=== PATIENT | male | born 1945 ===

== ENCOUNTER 2018-10-13 12:04 | Outpatient (REF) | payer OTHER, SELFPAY ==
[2018-10-13 22:47] LABS: BUN 21 mg/dL (7-18); CREATININE 0.76 mg/dL (0.70-1.30); Calcium 8.6 mg/dL (8.5-10.1); Chloride 105 mmol/L (98-107); Glucose 76 mg/dL (70-100); Potassium 4.1 mmol/L (3.5-5.1); Sodium 141 mmol/L (136-145)
== END 2018-10-13 12:24 ==
LOC: NCHCN 12:04
PROVIDERS: PCP Nurse Practitioner Family; Visit Provider Registered Nurse
DX: Z86.79 Personal history of other diseases of the circulatory system (principal)
CPT/HCPCS: 80048

== ENCOUNTER 2020-10-01 17:04 | Outpatient (REF) | payer OTHER, SELFPAY ==
[2020-10-01 22:10] LABS: HCT 43.4 % (40.0-50.0); HGB 15.2 g/dL (13.5-17.5); MCH 31.9 pg (27.0-33.0); MPV 9.8 fL (8.0-11.0); Platelet Count 218 10^3/uL (130-400); RBC 4.77 10^6/uL (4.36-5.78); RDW 12.3 % (11.8-14.1); RDW-SD 40.9 fL; WBC 5.34 10^3/uL (4.4-10.8)
[2020-10-01 22:32] LABS: Anion Gap 13.4 mmol/L (3-11); BUN 25 mg/dL (7-18); CO2 22.6 mmol/L (21.0-32.0); Calcium 8.7 mg/dL (8.5-10.1); Calculated LDL 124 mg/dL (<100); Chloride 106 mmol/L (98-107); Cholesterol 195 mg/dL (<200); Ferritin 62 ng/mL (26-388); Glucose 99 mg/dL (74-106); HDL Cholesterol 56 mg/dL (40-60); Sodium 142 mmol/L (136-145); Triglyceride 78 mg/dL (<150)
[2020-10-02 18:31] LABS: PSA, Screening 1.8 ng/mL (0.0-6.5)
== END 2020-10-01 17:05 | disposition home or self-care (01) ==
LOC: NCHCN 17:04
PROVIDERS: PCP Nurse Practitioner Family; Visit Provider Nurse Practitioner Family
DX: R73.09 Other abnormal glucose (principal); R79.89 Other specified abnormal findings of blood chemistry; N40.0 Benign prostatic hyperplasia without lower urinary tract symptoms; Z12.5 Encounter for screening for malignant neoplasm of prostate
CPT/HCPCS: 80048; 80061; 84153; 85027; 82728; 83036

== ENCOUNTER 2023-10-06 22:35 | Outpatient (REF) | payer OTHER, SELFPAY ==
--- NOTE | 2023-10-06 11:30 | SKI_PTH ---
PATIENT: Isaias Castaneda LOC: NCN #:[id number] AGE/SX: 78/M ROOM: RE10/06/[address]: Constance Scruggs : 1945 BED: DIS: 10/06/2023 SPEC #: [id number] RECD: 10/07/23 08:44 STATUS: ANA REBOLLEDO #: [id number] EULA: 10/06/23 11:[address]: Constance Rehman DEPT: Surgical Specimen RECD BY: Comfort Grayson Tissues: 1 - SKIN BIOPSY(SHAVE/PUNCH) Procedures: SKIN LEVEL 4 Comments: [id number]
== END 2023-10-06 22:36 | disposition home or self-care (01) ==
LOC: NCHCN 22:35
PROVIDERS: PCP Nurse Practitioner Family; Referring Provider Nurse Practitioner Family; Visit Provider Nurse Practitioner Family
DX: C44.311 Basal cell carcinoma of skin of nose (principal)
CPT/HCPCS: 88305

== ENCOUNTER 2025-01-02 15:21 | Outpatient (REF) | payer MEDICARE, SELFPAY ==
[2025-01-02 15:24] LABS: HCT 42.6 % (40.0-50.0); HGB 14.5 g/dL (13.5-17.5); MCH 31.3 pg (27.0-33.0); MCV 92 fL (80-95); MPV 9.6 fL (8.0-11.0); Platelet Count 195 10^3/uL (130-400); RBC 4.63 10^6/uL (4.36-5.78); RDW 13.2 % (11.8-14.1); RDW-SD 44.2 fL; WBC 5.42 10^3/uL (4.4-10.8)
[2025-01-02 16:07] LABS: ALT 21 U/L (16-63); AST 23 U/L (15-37); Albumin 3.9 g/dL (3.4-5.0); Alkaline Phosphatase 92 U/L (46-116); Anion Gap 7.5 mmol/L (3-11); BUN 24 mg/dL (7-18); Bilirubin, Total 0.5 mg/dL (0.2-1.0); CO2 25.5 mmol/L (21.0-32.0); CREATININE 1.2 mg/dL (0.70-1.30); Calcium 8.9 mg/dL (8.5-10.1); Calculated LDL 115 mg/dL (<100); Chloride 105 mmol/L (98-107); Cholesterol 189 mg/dL (<200); Estimated GFR 61.52 (mL/min/1.73m2); Ferritin 59 ng/mL (26-388); Glucose 138 mg/dL (74-106); HDL Cholesterol 54 mg/dL (>or=40); Potassium 4.1 mmol/L (3.5-5.1); Sodium 138 mmol/L (136-145); TSH 6.11 uIU/mL (0.36-3.74); Total Protein 7.2 g/dL (6.4-8.2); Triglyceride 100 mg/dL (<150); Vitamin B12 643 pg/mL (193-986)
[2025-01-02 16:17] LABS: Hemoglobin A1C 5.8 % (<5.7)
== END 2025-01-02 15:22 | disposition home or self-care (01) ==
LOC: NCHCN 15:21
PROVIDERS: PCP Nurse Practitioner Family; Visit Provider Nurse Practitioner Family
DX: Z00.00 Encounter for general adult medical examination without abnormal findings (principal); G31.84 Mild cognitive impairment of uncertain or unknown etiology; G25.81 Restless legs syndrome; N40.1 Benign prostatic hyperplasia with lower urinary tract symptoms
CPT/HCPCS: 80053; 80061; 85027; 82607; 82728; 83036; 84154; 84443